=== PATIENT | male | born 1985 | race Caucasian/White ===

== ENCOUNTER 2020-06-08 07:41 | Emergency (ER) | payer OTHER ==
[~2020-06-08] VITALS: Ht 180.3 cm; Wt 117.9 kg
[2020-06-08] MEDS ORDERED: Loratadine10 MG PO (07:54)
[2020-06-08] MEDS ORDERED: Percocet 5-3251 EACH PO (08:09)
[2020-06-08] MEDS ORDERED: IBUP600 PO (08:09)
== END 2020-06-08 08:45 | disposition home or self-care (01) ==
LOC: ER 07:41
DX: S92.532A Displaced fracture of distal phalanx of left lesser toe(s), initial encounter for closed fracture (principal); Z79.899 Other long term (current) drug therapy; W20.8XXA Other cause of strike by thrown, projected or falling object, initial encounter
CPT/HCPCS: 73630; 99283-25

== ENCOUNTER 2022-01-30 13:52 | Emergency (ER) | payer OTHER ==
[~2022-01-30] VITALS: Ht 180.3 cm; Wt 117.9 kg
[~2022-01-30 13:52] MED LIST: IBUP600 PO; Loratadine10 MG PO; Percocet 5-3251 EACH PO
[2022-01-30 15:12] LABS: BASOPHILS ABSOLUTE AUTO 0.06 K/mm3 (0.00-0.23); BASOPHILS PERCENT AUTO 1 % (0-2); EOSINOPHILS ABSOLUTE AUTO 0.18 K/mm3 (0.00-0.68); EOSINOPHILS PERCENT AUTO 2 % (0-6); Hematocrit 47.6 % (37.0-53.0); Hemoglobin 16.2 g/dL (13.5-17.5); IMMATURE GRAN ABSOLUTE AUTO 0.04 K/mm3 (0.00-0.10); IMMATURE GRAN PERCENT AUTO 0 % (0-1); LYMPHOCYTES ABSOLUTE AUTO 3.05 K/mm3 (0.84-5.20); LYMPHOCYTES PERCENT AUTO 30 % (21-46); MONOCYTES ABSOLUTE AUTO 0.66 K/mm3 (0.16-1.47); MONOCYTES PERCENT AUTO 7 % (4-13); Mean Corpuscular HGB 28.9 pg (26.0-34.0); Mean Corpuscular Volume 85 fL (80-100); Mean Platelet Volume 10.1 fL (9.1-12.4); NEUTROPHILS ABSOLUTE AUTO 6.22 K/mm3 (1.96-9.15); NEUTROPHILS PERCENT AUTO 61 % (41-73); Platelet Count 290 K/mm3 (150-400); RDW Coefficient Variation 13.1 % (11.7-14.2); RDW Standard Deviation 40.8 fL (35.1-46.3); White Blood Cell Count 10.21 K/mm3 (4.00-11.30)
[2022-01-30 15:22] LABS: Alanine Aminotransfer (ALT/SGP 36 U/L (12-78); Albumin, Blood 4.2 g/dL (3.4-5.0); Albumin/Globulin Ratio 1.1 (0.8-1.8); Alk Phos 79 U/L (50-136); Anion Gap 11 mmol/L (6-16); Aspartate Aminotrans (AST/SGOT 34 U/L (12-37); Bilirubin, Total 0.7 mg/dL (0.1-1.0); Blood Urea Nitrogen 8 mg/dL (8-24); CO2, Blood 26 mmol/L (21-32); Calcium, Blood 9.1 mg/dL (8.5-10.1); Chloride, Blood 101 mmol/L (98-108); Creatinine, Blood 0.62 mg/dL (0.60-1.20); Globulin, Blood 3.9 g/dL (2.2-4.0); Glomerular Filtration Rate >60 (60-); Glucose, Blood 127 mg/dL (70-99); Potassium, Blood 3.8 mmol/L (3.5-5.5); Sodium, Blood 138 mmol/L (136-145); Total Protein, Blood 8.1 g/dL (6.4-8.2)
== END 2022-01-30 16:09 | disposition home or self-care (01) ==
LOC: ER 13:52
PROVIDERS: Physician Assistant
DX: F10.139 Alcohol abuse with withdrawal, unspecified (principal); I10 Essential (primary) hypertension; F17.200 Nicotine dependence, unspecified, uncomplicated; Z79.899 Other long term (current) drug therapy
CPT/HCPCS: 36415; 80053; 83690; 85025; 99284

== ENCOUNTER 2023-09-20 21:18 | Emergency (ER) | payer OTHER ==
[~2023-09-20] VITALS: Ht 180.3 cm; Wt 117.0 kg
[2023-09-20 21:33] VITALS: BP 153/106
== END 2023-09-20 22:20 | disposition home or self-care (01) ==
LOC: ER 21:18
DX: S61.012A Laceration without foreign body of left thumb without damage to nail, initial encounter (principal); I10 Essential (primary) hypertension; F17.200 Nicotine dependence, unspecified, uncomplicated; F10.10 Alcohol abuse, uncomplicated; W26.0XXA Contact with knife, initial encounter; Z79.899 Other long term (current) drug therapy
CPT/HCPCS: 12001; 99282-25

== ENCOUNTER 2025-05-08 07:30 | Emergency (ER) | payer OTHER ==
[~2025-05-08] VITALS: Ht 180.3 cm; Wt 115.0 kg
[~2025-05-08 07:30] MED LIST changes: +BETA.05TCA TOP
[2025-05-08 07:45] VITALS: BP 153/105
[2025-05-08] MEDS ORDERED: LISINOPRIL2.5 MG PO (07:48)
[2025-05-08] MEDS ORDERED: ALLERCLEAR10 MG PO (07:48)
[2025-05-08] MEDS ORDERED: Trimethoprim/Sulfamethoxazole DS Tab PO ONE (09:45)
[2025-05-08] MEDS ORDERED: SULTRIDS PO (09:54)
[2025-05-08] MEDS ORDERED: AMOCLA875 PO (09:54)
[2025-05-08] MEDS ORDERED: OXAYDO5 M1 PO (11:31)
== END 2025-05-08 10:05 | disposition home or self-care (01) ==
LOC: ER 07:30
DX: L03.114 Cellulitis of left upper limb (principal); I10 Essential (primary) hypertension; E78.5 Hyperlipidemia, unspecified; F17.200 Nicotine dependence, unspecified, uncomplicated; Z79.899 Other long term (current) drug therapy
CPT/HCPCS: 73080; 99283-25; A9270

== ENCOUNTER 2025-07-24 19:54 | Emergency (ER) | payer OTHER ==
[~2025-07-24] VITALS: Ht 180.3 cm; Wt 113.4 kg
[~2025-07-24 19:54] MED LIST changes: +ALLERCLEAR10 MG PO; +AMOCLA875 PO; +LISINOPRIL2.5 MG PO; +OXAYDO5 M1 PO; +SULTRIDS PO
[2025-07-24 20:21] VITALS: BP 162/107
[2025-07-24] MEDS ORDERED: AMOCLA875 PO (21:05)
== END 2025-07-24 21:12 | disposition home or self-care (01) ==
LOC: ER 19:54
DX: K11.20 Sialoadenitis, unspecified (principal); I10 Essential (primary) hypertension; E78.5 Hyperlipidemia, unspecified; F17.200 Nicotine dependence, unspecified, uncomplicated; Z79.899 Other long term (current) drug therapy
CPT/HCPCS: 99282